=== PATIENT | female | born 1970 | race Caucasian/White ===

== ENCOUNTER 2023-10-18 06:32 | Outpatient (RCR) | payer BC, SELFPAY | END 2023-10-18 23:59 | disposition home or self-care (01) | LOC: RPT 06:32 | PROVIDERS: ATTENDING PHYSICIAN Surgery Surgical Oncology; PRIMARYCARE PHYSICIAN Internal Medicine | DX: I89.0 Lymphedema, not elsewhere classified (principal); Z85.3 Personal history of malignant neoplasm of breast | CPT/HCPCS: 97162; 97535 ==

== ENCOUNTER 2023-11-20 07:11 | Outpatient (RCR) | payer BC, SELFPAY | END 2023-11-20 23:59 | disposition home or self-care (01) | LOC: RPT 07:11 | PROVIDERS: ATTENDING PHYSICIAN Surgery Surgical Oncology; PRIMARYCARE PHYSICIAN Internal Medicine | DX: I97.2 Postmastectomy lymphedema syndrome (principal); Z73.6 Limitation of activities due to disability; C50.911 Malignant neoplasm of unspecified site of right female breast; Z90.11 Acquired absence of right breast and nipple | CPT/HCPCS: 97110; 97140; 97530; 97535 ==

== ENCOUNTER → 2024-01-04 10:45 | Outpatient (REF) | payer OTHER, SELFPAY | LOC: OHS 10:45 | PROVIDERS: ATTENDING PHYSICIAN Nurse Practitioner Family; FAMILY PHYSICIAN Internal Medicine | DX: M25.562 Pain in left knee (principal) | CPT/HCPCS: 73564 ==

== ENCOUNTER → 2024-01-16 19:08 | Outpatient (REF) | payer OTHER, BC, SELFPAY | LOC: MRI 19:08 | PROVIDERS: ATTENDING PHYSICIAN Orthopaedic Surgery; FAMILY PHYSICIAN Internal Medicine | DX: M25.562 Pain in left knee (principal) | CPT/HCPCS: 73721 ==

== ENCOUNTER 2024-03-01 06:42 | Day surgery (SDC) | payer OTHER, BC, SELFPAY ==
[2024-02-21 09:43] VITALS: BMI 37.3
[2024-03-01] VITALS (9 sets, daily range): BP systolic 102–132; BP diastolic 45–74; BMI 37.3
[2024-03-01] MEDS: TYLENOL 1000 MG PO (10:50)
[2024-03-01] MEDS: CELEBREX 200 MG PO (10:50)
[2024-03-01] MEDS: NORMOSOL-R 1000 IV (10:51)
[2024-03-01] MEDS: DEMEROL 12.5 MG IV (15:50)
[2024-03-01] MEDS: DILAUDID 0.25 MG IV (16:04)
== END 2024-03-01 17:33 | disposition home or self-care (01) ==
LOC: SDS 06:42
PROVIDERS: ATTENDING PHYSICIAN Orthopaedic Surgery; FAMILY PHYSICIAN Internal Medicine
DX: S83.242A Other tear of medial meniscus, current injury, left knee, initial encounter (principal); X58.XXXA Exposure to other specified factors, initial encounter; Y92.210 Daycare center as the place of occurrence of the external cause; Y99.0 Civilian activity done for income or pay
CPT/HCPCS: 29881; 36415; 93005

== ENCOUNTER → 2024-03-18 16:55 | Outpatient (REF) | payer OTHER, BC, SELFPAY | LOC: WDC 16:55 | PROVIDERS: ATTENDING PHYSICIAN Surgery Surgical Oncology; FAMILY PHYSICIAN Internal Medicine | DX: Z12.31 Encounter for screening mammogram for malignant neoplasm of breast (principal) | CPT/HCPCS: 77063; 77067 ==

== ENCOUNTER 2025-01-24 13:00 | Emergency (ER) | payer BC, SELFPAY ==
[2025-01-24 13:03] VITALS: BP 166/85
[2025-01-24 13:21] LABS: % Basophils 0.8 % (0-2); % Immature Granulocytes 0.2 % (0-0.5); % Lymphocytes 24.3 % (20.5-51.1); % Monocytes 7.7 % (1.7-9.3); Absolute Basophils 0.1 10^3/uL (0-0.2); Absolute Eosinophils 0.4 10^3/uL (0-0.7); Absolute Lymphocytes 2.2 10^3/uL (1.2-3.4); Absolute Monocytes 0.7 10^3/uL (0.1-0.6); Absolute Neutrophils 5.6 10^3/uL (1.4-6.5); Hematocrit 40.3 % (37.0-47.0); Hemoglobin 13.4 g/dL (12.0-16.0); Mean Corp Hgb Conc. 33.3 g/dL (33.0-37.0); Mean Corpuscular Hgb 28.9 pg (27.0-31.0); Mean Corpuscular Volume 86.9 fL (81.0-99.0); Mean Platelet Volume 9.5 fL (7.4-10.4); Nucleated Red Blood Cells % 0 %; Platelet Count 270 10^3/uL (130-400); Red Blood Cell Count 4.64 10^6/uL (4.20-5.40); Red Cell Dist. Width 13.8 % (11.5-14.5); White Blood Cell Count 8.9 10^3/uL (4.8-10.8)
[2025-01-24 13:39] LABS: ALT (SGPT) 22 U/L (0-35); AST (SGOT) 27 U/L (14-36); Albumin 4.2 g/dl (3.5-5.0); Alkaline Phosphatase 58 U/L (38-126); Blood Urea Nitrogen 26 mg/dl (7-17); Calcium 9.7 mg/dl (8.4-10.2); Carbon Dioxide 28 mmol/L (22-30); Chloride 105 mmol/L (98-107); Glucose 85 mg/dl (70-99); Potassium 4.5 mmol/L (3.5-5.1); Sodium 139 mmol/L (135-145); Total Bilirubin 0.5 mg/dl (0.2-1.3); Total Protein 7.3 g/dl (6.3-8.2); eGFR > 60.00
--- NOTE | 2025-01-24 16:15 | EDRN ---
Dr. Krause in room w/ pt.
--- NOTE | 2025-01-24 16:15 | ED.GENMED ---
History of Present Illness
General
Chief Complaint: Facial Problem
Source: patient
Time Seen by Provider: 01/24/25 15:53
History of Present Illness
History of Present Illness:
54-year-old female presents to the emergency room complaining of headache primarily in the right side of her head, tinnitus, episodic dizziness that has been present for the past couple weeks. She is history of headaches that occur intermittently.
She has not had headaches for several years. Her primary care doctor prescribed Nurtec which has not helped. No fever or chills. No nausea or vomiting. Patient also feels like the right side of her face might be slightly swollen. She denies any
trauma. She denies any focal weakness.
Past History
Past History
ED Past Medical History: Asthma and Other (Breast cancer status post right mastectomy, hysterectomy, x2)
ED Past Surgical History: Appendectomy
Social History
Tobacco: Former smoker
Alcohol: Occasional
Personal:
Living: with family
Family History
Family History: Negative Diabetes or CAD
Phy Exam
Physical Exam
Physical Exam:
General: Awake, Alert, Oriented X3. No acute distress.
Vitals: unremarkable
Head: Atraumatic
Eyes: Pupils equal, EOMI
Throat: Airway intact, no exudates
Neck: Trachea midline
Lungs: Clear and equal b/l
Heart: Regular rate, no murmurs
Abd: Soft, Nontender, No pulsatile mass
Neuro: Cranial nerves intact, muscle strength equal bilaterally, cerebellar exam normal
Skin: Warm, dry, no rash
Extremities: pulses equal b/l, no edema
Course
Orders/Labs/Results
Orders:
Orders
01/24/25 13:15
CBC/With Diff [Complete Blood Count/With Diff] Urgent
Comprehensive Metabolic Panel Urgent
01/24/25 16:12
CT Head W/o Iv Contrast Urgent
Comment:
Reason For Exam: headache, tinniuts
Diphenhydramine [Benadryl] 25 mg IV NOW STA
Metoclopramide [Reglan] 10 mg IV NOW STA
Abnormal Lab Results
01/24/25
13:15
Absolute Monos (auto) 0.7 H 10^3/uL
(0.1-0.6)
BUN 26 H mg/dl
(7-17)
01/24/25 13:15
01/24/25 13:15
Vital Signs
Initial and Last Documented VS:
Initial Vital Signs
Temp Pulse Resp BP Pulse Ox
98.2 F 73 16 166/85 98
01/24/25 13:03 01/24/25 13:03 01/24/25 13:03 01/24/25 13:03 01/24/25 13:03
Last Documented Vital Signs
Temp Pulse Resp BP Pulse Ox
98.2 F 79 14 134/90 97
01/24/25 13:03 01/24/25 20:10 01/24/25 20:10 01/24/25 20:10 01/24/25 20:10
MDM/Problems Addressed
Differential Diagnosis Includes:
M�ni�re's disease, vestibular migraine, space-occupying lesion
MDM/Problems Addressed:
Patient presents with headache, intermittent vertigo, ringing in her right ear. CT does not show any acute abnormality. Patient has significant improvement of her symptoms with treatment for migraine headaches with Reglan and Benadryl.
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 M�ni�re's might be consistent with part of her presentation however I would expect a headache. She does have an appoint with neurology on Monday. I think this is the appropriate
follow-up. Patient stable for discharge home at this time.
*Radiology
Radiology exam reviewed: radiology read reviewed
*Pulse Oximetry
Patient hypoxic: no
*Critical Care Note
Total Time (30-74mins, 75-104mins- exclusive of procedures): Not Applicable
ED Attending Note
-
Portions of this chart may have been created with voice recognition software.� Occasional wrong word or��sound alike� substitutions may have occurred due to the inherent limitations of voice recognition software.
Discharge Plan
Departure
Patient Disposition: Home (Routine Discharge)
Date of Disposition: 01/24/25
Time of Disposition: 20:02
Patient with high blood pressure during this ER visit?: No
Condition: Good
Discharge Problem:
Vestibular migraine
Instructions: Migraine in adults
Prescriptions:
No Action
acetaminophen [Tylenol Ex Str Arthritis Pain] 500 mg Tablet
500 mg PO Q6H PRN (Reason: pain)
naproxen [Naprosyn] 500 mg Tablet
500 mg PO PRN PRN (Reason: Pain)
albuterol sulfate 90 mcg/actuation Hfa Aerosol Inhaler
1 puff INHALATION PRN PRN (Reason: SOB, Wheezes)
Referrals:
NONE,* [Active] -
Interventions
Interventions:
*Risk Screen - Suicide Last Done: 01/24/25 13:03
*General Assessment Last Done: 01/24/25 16:36
*Neglect/Abuse Screening Last Done: 01/24/25 13:03
*ED- Fall Risk Assessment Last Done: 01/24/25 16:36
*ED COVID-19 Vaccine History Last Done: 01/24/25 16:36
*Nursing Disposition Last Done: 01/24/25 20:14
ED- Neurological Assessment Last Done: 01/24/25 16:40
ED-Skin Assessment Last Done: 01/24/25 16:40
Discharge Date and Time
Discharge Date/Time: 01/24/25 20:16
Print Language: SINHALA
--- NOTE | 2025-01-24 16:34 | EDRN ---
Pt states she has tinnitus for last 3 months continuous. Pt states migraine started trang Monday at trang 19:00 w/ increased ringing, head pressure and pain started Monday AM. Pt states she also has dizziness. Pain is now 3/10 (was stronger
yesterday and took nortec) and ringing is 4/10 was also worse yesterday (8-07/09 night).
[2025-01-24 16:36] VITALS: BMI 39.8
--- NOTE | 2025-01-24 16:56 | EDRN ---
Unable to get IV access for migraine medications at this time. IV VAT RN called and is attempting IV access at this time.
[2025-01-24] MEDS: REGLAN 10 MG IV (17:08)
[2025-01-24] MEDS: BENADRYL 25 MG IV (17:08)
[2025-01-24 17:16] VITALS: BP 134/84
--- NOTE | 2025-01-24 17:19 | EDRN ---
Pt complained of feeling faint with palpitations and cold feeling in her legs. Pt had HR 110 and very anxious and uncomfortable. After benadryl given after IV was flushed.
[2025-01-24 18:10] VITALS: BP 116/67
[2025-01-24 19:10] VITALS: BP 119/68
--- NOTE | 2025-01-24 19:53 | EDRN ---
Dr. Krause said pt can have some water and was given some water at this time.
[2025-01-24 20:10] VITALS: BP 134/90
--- NOTE | 2025-01-24 20:10 | EDRN ---
Dr. Krause in to see pt.
== END 2025-01-24 20:16 | disposition home or self-care (01) ==
LOC: EMR 13:00
PROVIDERS: Student in an Organized Health Care Education/Training Program; EMERGENCY PHYSICIAN Emergency Medicine; FAMILY PHYSICIAN Nurse Practitioner
DX: G43.809 Other migraine, not intractable, without status migrainosus (principal); Z87.891 Personal history of nicotine dependence
CPT/HCPCS: 99284; 96374; 96375; 70450; 80053; 85025

== ENCOUNTER → 2025-03-19 16:54 | Outpatient (REF) | payer BC, SELFPAY | LOC: WDC 16:54 | PROVIDERS: ATTENDING PHYSICIAN Nurse Practitioner Family | DX: Z12.31 Encounter for screening mammogram for malignant neoplasm of breast (principal) | CPT/HCPCS: 77063; 77067 ==

== ENCOUNTER → 2025-09-17 12:53 | Outpatient (REF) | payer BC, SELFPAY | LOC: RAD 12:53 | PROVIDERS: ATTENDING PHYSICIAN Hospitalist | DX: J06.9 Acute upper respiratory infection, unspecified (principal) | CPT/HCPCS: 71046 ==